=== PATIENT | female | born 2000 | race Caucasian/White ===

== ENCOUNTER → 2021-07-07 13:31 | Outpatient (BNVA) | payer OTHER, SELFPAY | PROVIDERS: Visit Provider Advanced Practice Midwife | DX: O30.002 Twin pregnancy, unspecified number of placenta and unspecified number of amniotic sacs, second trimester (principal); O26.892 Other specified pregnancy related conditions, second trimester; E65 Localized adiposity; Z36.3 Encounter for antenatal screening for malformations; O99.212 Obesity complicating pregnancy, second trimester; E66.01 Morbid (severe) obesity due to excess calories; Z3A.21 21 weeks gestation of pregnancy | CPT/HCPCS: 81025; 99202 ==

== ENCOUNTER → 2021-07-14 13:59 | Outpatient (BNVA) | payer OTHER, SELFPAY | PROVIDERS: Visit Provider Advanced Practice Midwife | DX: Z32.01 Encounter for pregnancy test, result positive (principal) | CPT/HCPCS: 99212 ==

== ENCOUNTER 2021-07-15 10:47 | Outpatient (REF) | payer OTHER, SELFPAY ==
--- NOTE | ~2021-07-15 | US_ITS ---
EXAMINATION: OBSTETRICAL ULTRASOUND, First Trimester Twins HISTORY: A 21-year-old at the 12.0 weeks of gestation Dichorionic diamniotic twins NT screening COMPARISON: None TECHNIQUE: Real time transabdominal imaging with color and M-mode Doppler. FINDINGS: Living dichorionic/diamniotic twin gestation is noted. Twin A: Materal left, posterior placenta A viable fetus with CRL of 53.3 mm c/w 12.0wks is noted. Heart Rate: 160 beats per minute. Normal yolk sac seen. NT was 1.7.mm. NB Present The embryo appears sonographically wnl for this GA. Both maternal ovaries are seen and appear normal. GESTATIONAL AGE: 1. Established GA: 12.0 wks 2. GA from AUA: 12.0 wks Twin B: Maternal right, anterior placenta A viable fetus with CRL of 58.1 mm c/w 12.3wks is noted. Heart Rate: 160 beats per minute. Normal yolk sac seen. NT was 1.1.mm. NB Present The embryo appears sonographically wnl for this GA. GESTATIONAL AGE: 1. Established GA: 12.0 wks 2. GA from AUA: 12.3 wks ESTIMATED DATE OF DELIVERY: 1. Established SKIP: 01/27/2022 2. SKIP from [facility]: 01/25/2020 US/US OB 1T nuc measure add IMPRESSION: Living dichorionic diamniotic, concordant twins Size equals dates Twin A: NT 1.7mm Twin B: NT 1.1 mm MFM Consultation: I reviewed the ultrasound findings along with significance of NT measurement. The NT of less than 3mm is generally reassuring. However, the sensitivity for T21 detection is only 60%. I reviewed the availability of serum aneuploidy screening which includes cell-free DNA and placental protein based tests. I discussed the sensitivity, false-positive rate, and other limitations associated with each test. I also reviewed the availability of invasive diagnostic tests that are associated small but definite risk of miscarriage. We also reviewed the differences between screening tests and diagnostic tests. After our discussion, she opted for the First trimester screening that is based on cell-free DNA or non-invasive testing (NIPT). I informed her of the limitations N IPT in multiple gestations. We discussed various obstetrical complications associated with twin gestation. These include increased risk of delivery, preeclampsia, gestational diabetes, and IUGR. She will be monitored with monthly ultrasound evaluation beginning at 18 weeks until approximately 34 weeks. After that, weekly testing is recommended until delivery. Follow up at 18 weeks for survey has been scheduled. Thank you very much for this referral. Total time 30 minutes. The time spent was devoted to counseling the patient about the disease and diagnosis, coordinating care including reviewing her records, pertinent lab data and studies, as well as discussing diagnostic evaluation and workup, plan therapeutic interventions and future disposition of care. This includes any additional research needed to obtain further information in formulating the plan of care of this patient. This note was generated with a voice recognition program. Please excuse any errors which may have been overlooked during my review of this note. Sometimes these errors may affect the content or meaning of a given sentence.
== END 2021-07-15 10:48 | disposition home or self-care (01) ==
LOC: HO.US 10:47
PROVIDERS: Visit Provider Advanced Practice Midwife
DX: Z36.3 Encounter for antenatal screening for malformations (principal); O30.001 Twin pregnancy, unspecified number of placenta and unspecified number of amniotic sacs, first trimester; Z3A.00 Weeks of gestation of pregnancy not specified
CPT/HCPCS: 76813; 76814

== ENCOUNTER 2021-08-11 09:46 | Outpatient (REF) | payer OTHER, SELFPAY ==
[2021-08-11 16:20] LABS: CT PCR NOT DETECTED (Not Detect.); NG PCR NOT DETECTED (Not Detect.)
[2021-08-12 10:08] LABS: BV Int Neg Control Negative (Negative); BV Int Pos Control Positive (Positive)
== END 2021-08-11 09:47 | disposition home or self-care (01) ==
LOC: HO.LAB 09:46
PROVIDERS: Visit Provider Advanced Practice Midwife
DX: O30.002 Twin pregnancy, unspecified number of placenta and unspecified number of amniotic sacs, second trimester (principal)
CPT/HCPCS: 87480; 87491; 87510; 87591; 87660; 88142

== ENCOUNTER 2021-08-11 11:03 | Outpatient (REF) | payer OTHER, SELFPAY ==
--- NOTE | ~2021-08-11 | US_ITS ---
EXAMINATION: US OB LIMITED. CLINICAL INFORMATION: Twin . COMPARISON: None TECHNIQUE: Routine transabdominal imaging of pelvis is performed. FINDINGS: There are dual live intrauterine fetuses. Fetus B: The fetus is to the maternal right. There is visualization of bladder and stomach. The kidneys and 4 chambers of the heart were not visualized. The heart rate is 146 bpm. From LMP the clinical gestational age is 15 weeks and 6 days. SKIP from previous ultrasound is 01/24/2022 and from LMP 01/27/2022. Fetus A: The fetus is to the maternal left. kidneys and four-chamber heart is not visualized. The bladder and the stomach is normal. The heart rate is 150 bpm. From LMP, the clinical gestational age is 15 weeks 6 days and SKIP is 01/27/2022. From earlier ultrasound, the SKIP is 01/27/2022. There is a membrane the 2 fetuses. US/US OB limited IMPRESSION: Live twin intrauterine fetuses as described above. Results were called to Guillermina the RN nurse at 11:27 AM by the product/device technologist.
== END 2021-08-11 11:04 | disposition home or self-care (01) ==
LOC: HO.US 11:03
PROVIDERS: Visit Provider Advanced Practice Midwife
DX: O35.9XX0 Maternal care for (suspected) fetal abnormality and damage, unspecified, not applicable or unspecified (principal); O26.892 Other specified pregnancy related conditions, second trimester; F41.9 Anxiety disorder, unspecified; F32.A Depression, unspecified; Z3A.15 15 weeks gestation of pregnancy
CPT/HCPCS: 76815; 99212

== ENCOUNTER 2021-08-26 10:01 | Outpatient (REF) | payer OTHER, SELFPAY ==
--- NOTE | ~2021-08-26 | US_ITS ---
EXAMINATION: OBSTETRICAL ULTRASOUND - SECOND TRIMESTER, TWINS HISTORY: 21-year-old at the 18.0 weeks of gestation Dichorionic diamniotic twins Screening for anomaly/cervical length screening COMPARISON: 6 08/11/2021 TECHNIQUE: Real time transabdominal imaging with color and M-mode Doppler. Transvaginal ultrasound was performed for accurate cervical length measurement. TWIN A: PRESENTATION: Maternal left, VTX PLACENTA LOCATION: Posterior without previa AMNIOTIC FLUID: Within normal limits MEASUREMENTS: 1. Biparietal Diameter: 4.1 cm; 18.4 wks 2. Occipital Frontal Diameter: 5.1 cm 3. Head Circumference: 14.9 cm; 18.0 wks 4. Abdominal Circumference: 12.8 cm; 18.3 wks 5. Femur Length: 2.7 cm; 18.3 wks 6. Humerus Length: 2.6 cm; 18.1 wks 7. Tibia Length: 2.2 cm; 18.0 wks 8. Ulna Length: 2.4 cm; 18.4 wks 9. Lateral ventricle: 0.7 cm 10. Cerebellum: 1.8 cm; 18.5 wks 11. Cisterna Magna: 0.4 cm 12. Nuchal Fold: 3.1 mm 13. Heart Rate: 163 beats per minute GESTATIONAL AGE: Established GA: 18.0 wks GA from AUA: 18.3 wks ANATOMY: 1. Cranium: Normal 2. BPD Level: Normal 3. Cerebral ventricles: Normal 4. face: Normal 5. Cardiac anatomy: Normal 6. Heart chambers: Normal 7. Diaphragm: Normal 8. Abdominal wall: Normal 9. Spine: Normal 10. Stomach: Normal 11. 3 vessel cord: Normal 12. Upper extremity: Normal 13. Lower extremity: Normal 14. Right Kidney: Normal 15. Left Kidney: Normal 16. Bladder: Normal 17. Genitalia: Male TWIN B: PRESENTATION: Transverse, maternal right PLACENTA LOCATION: Anterior without previa AMNIOTIC FLUID: Normal MEASUREMENTS: 1. Biparietal Diameter: 4.3 cm; 19.1 wks 2. Occipital Frontal Diameter: 5.4 cm 3. Head Circumference: 15.3 cm; 18.2 wks 4. Abdominal Circumference: 12.6 cm; 18.2 wks 5. Femur Length: 2.6 cm; 18.0 wks 6. Humerus Length: 2.6 cm; 18.1 wks 7. Tibia Length: 2.1 cm; 17.3 wks 8. Ulna Length: 2.3 cm; 18.2 wks 9. Lateral ventricle: 0.85 cm 10. Cerebellum: 1.78 cm; 18.4 wks 11. Cisterna Magna: 0.55 cm 12. Nuchal Fold: 3.8 mm 13. Heart Rate: 134 beats per minute GESTATIONAL AGE: Established GA: 18.0 wks GA from [facility]: 18.3 wks ANATOMY: 1. Cranium: Normal 2. BPD Level: Normal 3. Cerebral ventricles: Normal 4. face: Normal 5. Cardiac anatomy: Normal 6. Heart chambers: Normal 7. Diaphragm: Normal 8. Abdominal wall: Normal 9. Spine: Normal 10. Stomach: Normal 11. 3 vessel cord: Normal 12. Upper extremity: Normal 13. Lower extremity: Normal 14. Right Kidney: Normal 15. Left Kidney: Normal 16. Bladder: Normal 17. Genitalia: Male ESTIMATED DATE OF DELIVERY: 1. Established SKIP: 01/27/2022 2. SKIP from [facility]: 01/24/2022 US/US OB transvaginal IMPRESSION: 1. Concordant, dichorionic diamniotic twins 2. Both twins are appropriate size for the given gestational age. 3. Normal survey in both twins 4. Cervix: 4.8 cm (T/V) We reviewed today's ultrasound findings. Have informed the patient that there were no ultrasound stigmata for aneuploidy. We reviewed that the limitations of ultrasound in detecting aneuploidy and other defects. Her cervical length is within normal limits. We also discussed the various obstetrical complications associated with dichorionic diamniotic twins. These include increased risk of delivery, preeclampsia, gestational diabetes and IUGR. The average gestational age for delivery for twins is approximately 38 weeks. A follow-up in one month has been scheduled. Thank you very much for this referral. Total time 45 minutes. The time spent was devoted to counseling the patient about the disease and diagnosis, coordinating care including reviewing her records, pertinent lab data and studies, as well as discussing diagnostic evaluation and workup, plan therapeutic interventions and future disposition of care. This includes any additional research needed to obtain further information in formulating the plan of care of this patient. This note was generated with a voice recognition program. Please excuse any errors which may have been overlooked during my review of this note. Sometimes these errors may affect the content or meaning of a given sentence.
--- NOTE | ~2021-08-26 | US_ITS ---
EXAMINATION: OBSTETRICAL ULTRASOUND - SECOND TRIMESTER, TWINS HISTORY: 21-year-old at the 18.0 weeks of gestation Dichorionic diamniotic twins Screening for anomaly/cervical length screening COMPARISON: 6 08/11/2021 TECHNIQUE: Real time transabdominal imaging with color and M-mode Doppler. Transvaginal ultrasound was performed for accurate cervical length measurement. TWIN A: PRESENTATION: Maternal left, VTX PLACENTA LOCATION: Posterior without previa AMNIOTIC FLUID: Within normal limits MEASUREMENTS: 1. Biparietal Diameter: 4.1 cm; 18.4 wks 2. Occipital Frontal Diameter: 5.1 cm 3. Head Circumference: 14.9 cm; 18.0 wks 4. Abdominal Circumference: 12.8 cm; 18.3 wks 5. Femur Length: 2.7 cm; 18.3 wks 6. Humerus Length: 2.6 cm; 18.1 wks 7. Tibia Length: 2.2 cm; 18.0 wks 8. Ulna Length: 2.4 cm; 18.4 wks 9. Lateral ventricle: 0.7 cm 10. Cerebellum: 1.8 cm; 18.5 wks 11. Cisterna Magna: 0.4 cm 12. Nuchal Fold: 3.1 mm 13. Heart Rate: 163 beats per minute GESTATIONAL AGE: Established GA: 18.0 wks GA from [facility]: 18.3 wks ANATOMY: 1. Cranium: Normal 2. BPD Level: Normal 3. Cerebral ventricles: Normal 4. face: Normal 5. Cardiac anatomy: Normal 6. Heart chambers: Normal 7. Diaphragm: Normal 8. Abdominal wall: Normal 9. Spine: Normal 10. Stomach: Normal 11. 3 vessel cord: Normal 12. Upper extremity: Normal 13. Lower extremity: Normal 14. Right Kidney: Normal 15. Left Kidney: Normal 16. Bladder: Normal 17. Genitalia: Male TWIN B: PRESENTATION: Transverse, maternal right PLACENTA LOCATION: Anterior without previa AMNIOTIC FLUID: Normal MEASUREMENTS: 1. Biparietal Diameter: 4.3 cm; 19.1 wks 2. Occipital Frontal Diameter: 5.4 cm 3. Head Circumference: 15.3 cm; 18.2 wks 4. Abdominal Circumference: 12.6 cm; 18.2 wks 5. Femur Length: 2.6 cm; 18.0 wks 6. Humerus Length: 2.6 cm; 18.1 wks 7. Tibia Length: 2.1 cm; 17.3 wks 8. Ulna Length: 2.3 cm; 18.2 wks 9. Lateral ventricle: 0.85 cm 10. Cerebellum: 1.78 cm; 18.4 wks 11. Cisterna Magna: 0.55 cm 12. Nuchal Fold: 3.8 mm 13. Heart Rate: 134 beats per minute GESTATIONAL AGE: Established GA: 18.0 wks GA from [facility]: 18.3 wks ANATOMY: 1. Cranium: Normal 2. BPD Level: Normal 3. Cerebral ventricles: Normal 4. face: Normal 5. Cardiac anatomy: Normal 6. Heart chambers: Normal 7. Diaphragm: Normal 8. Abdominal wall: Normal 9. Spine: Normal 10. Stomach: Normal 11. 3 vessel cord: Normal 12. Upper extremity: Normal 13. Lower extremity: Normal 14. Right Kidney: Normal 15. Left Kidney: Normal 16. Bladder: Normal 17. Genitalia: Male ESTIMATED DATE OF DELIVERY: 1. Established SKIP: 01/27/2022 2. SKIP from [facility]: 01/24/2022 US/US OB /maternal det add IMPRESSION: 1. Concordant, dichorionic diamniotic twins 2. Both twins are appropriate size for the given gestational age. 3. Normal survey in both twins 4. Cervix: 4.8 cm (T/V) We reviewed today's ultrasound findings. Have informed the patient that there were no ultrasound stigmata for aneuploidy. We reviewed that the limitations of ultrasound in detecting aneuploidy and other defects. Her cervical length is within normal limits. We also discussed the various obstetrical complications associated with dichorionic diamniotic twins. These include increased risk of delivery, preeclampsia, gestational diabetes and IUGR. The average gestational age for delivery for twins is approximately 38 weeks. A follow-up in one month has been scheduled. Thank you very much for this referral. Total time 45 minutes. The time spent was devoted to counseling the patient about the disease and diagnosis, coordinating care including reviewing her records, pertinent lab data and studies, as well as discussing diagnostic evaluation and workup, plan therapeutic interventions and future disposition of care. This includes any additional research needed to obtain further information in formulating the plan of care of this patient. This note was generated with a voice recognition program. Please excuse any errors which may have been overlooked during my review of this note. Sometimes these errors may affect the content or meaning of a given sentence.
--- NOTE | ~2021-08-26 | US_ITS ---
EXAMINATION: OBSTETRICAL ULTRASOUND - SECOND TRIMESTER, TWINS HISTORY: 21-year-old at the 18.0 weeks of gestation Dichorionic diamniotic twins Screening for anomaly/cervical length screening COMPARISON: 6 08/11/2021 TECHNIQUE: Real time transabdominal imaging with color and M-mode Doppler. Transvaginal ultrasound was performed for accurate cervical length measurement. TWIN A: PRESENTATION: Maternal left, VTX PLACENTA LOCATION: Posterior without previa AMNIOTIC FLUID: Within normal limits MEASUREMENTS: 1. Biparietal Diameter: 4.1 cm; 18.4 wks 2. Occipital Frontal Diameter: 5.1 cm 3. Head Circumference: 14.9 cm; 18.0 wks 4. Abdominal Circumference: 12.8 cm; 18.3 wks 5. Femur Length: 2.7 cm; 18.3 wks 6. Humerus Length: 2.6 cm; 18.1 wks 7. Tibia Length: 2.2 cm; 18.0 wks 8. Ulna Length: 2.4 cm; 18.4 wks 9. Lateral ventricle: 0.7 cm 10. Cerebellum: 1.8 cm; 18.5 wks 11. Cisterna Magna: 0.4 cm 12. Nuchal Fold: 3.1 mm 13. Heart Rate: 163 beats per minute GESTATIONAL AGE: Established GA: 18.0 wks GA from [facility]: 18.3 wks ANATOMY: 1. Cranium: Normal 2. BPD Level: Normal 3. Cerebral ventricles: Normal 4. face: Normal 5. Cardiac anatomy: Normal 6. Heart chambers: Normal 7. Diaphragm: Normal 8. Abdominal wall: Normal 9. Spine: Normal 10. Stomach: Normal 11. 3 vessel cord: Normal 12. Upper extremity: Normal 13. Lower extremity: Normal 14. Right Kidney: Normal 15. Left Kidney: Normal 16. Bladder: Normal 17. Genitalia: Male TWIN B: PRESENTATION: Transverse, maternal right PLACENTA LOCATION: Anterior without previa AMNIOTIC FLUID: Normal MEASUREMENTS: 1. Biparietal Diameter: 4.3 cm; 19.1 wks 2. Occipital Frontal Diameter: 5.4 cm 3. Head Circumference: 15.3 cm; 18.2 wks 4. Abdominal Circumference: 12.6 cm; 18.2 wks 5. Femur Length: 2.6 cm; 18.0 wks 6. Humerus Length: 2.6 cm; 18.1 wks 7. Tibia Length: 2.1 cm; 17.3 wks 8. Ulna Length: 2.3 cm; 18.2 wks 9. Lateral ventricle: 0.85 cm 10. Cerebellum: 1.78 cm; 18.4 wks 11. Cisterna Magna: 0.55 cm 12. Nuchal Fold: 3.8 mm 13. Heart Rate: 134 beats per minute GESTATIONAL AGE: Established GA: 18.0 wks GA from [facility]: 18.3 wks ANATOMY: 1. Cranium: Normal 2. BPD Level: Normal 3. Cerebral ventricles: Normal 4. face: Normal 5. Cardiac anatomy: Normal 6. Heart chambers: Normal 7. Diaphragm: Normal 8. Abdominal wall: Normal 9. Spine: Normal 10. Stomach: Normal 11. 3 vessel cord: Normal 12. Upper extremity: Normal 13. Lower extremity: Normal 14. Right Kidney: Normal 15. Left Kidney: Normal 16. Bladder: Normal 17. Genitalia: Male ESTIMATED DATE OF DELIVERY: 1. Established SKIP: 01/27/2022 2. SKIP from [facility]: 01/24/2022 US/US OB /maternal detail IMPRESSION: 1. Concordant, dichorionic diamniotic twins 2. Both twins are appropriate size for the given gestational age. 3. Normal survey in both twins 4. Cervix: 4.8 cm (T/V) We reviewed today's ultrasound findings. Have informed the patient that there were no ultrasound stigmata for aneuploidy. We reviewed that the limitations of ultrasound in detecting aneuploidy and other defects. Her cervical length is within normal limits. We also discussed the various obstetrical complications associated with dichorionic diamniotic twins. These include increased risk of delivery, preeclampsia, gestational diabetes and IUGR. The average gestational age for delivery for twins is approximately 38 weeks. A follow-up in one month has been scheduled. Thank you very much for this referral. Total time 45 minutes. The time spent was devoted to counseling the patient about the disease and diagnosis, coordinating care including reviewing her records, pertinent lab data and studies, as well as discussing diagnostic evaluation and workup, plan therapeutic interventions and future disposition of care. This includes any additional research needed to obtain further information in formulating the plan of care of this patient. This note was generated with a voice recognition program. Please excuse any errors which may have been overlooked during my review of this note. Sometimes these errors may affect the content or meaning of a given sentence.
== END 2021-08-26 10:02 | disposition home or self-care (01) ==
LOC: HO.US 10:01
PROVIDERS: Visit Provider Advanced Practice Midwife
DX: Z36.3 Encounter for antenatal screening for malformations (principal); O35.9XX0 Maternal care for (suspected) fetal abnormality and damage, unspecified, not applicable or unspecified; O30.001 Twin pregnancy, unspecified number of placenta and unspecified number of amniotic sacs, first trimester; O99.211 Obesity complicating pregnancy, first trimester; E66.01 Morbid (severe) obesity due to excess calories
CPT/HCPCS: 76811; 76812; 76817

== ENCOUNTER → 2021-09-08 10:22 | Outpatient (BNVA) | payer OTHER, SELFPAY | PROVIDERS: Visit Provider Obstetrics & Gynecology | DX: O30.002 Twin pregnancy, unspecified number of placenta and unspecified number of amniotic sacs, second trimester (principal); Z3A.19 19 weeks gestation of pregnancy | CPT/HCPCS: 81003; 99212 ==

== ENCOUNTER 2021-09-08 11:10 | Outpatient (REF) | payer OTHER, SELFPAY ==
[2021-09-08 12:38] LABS: HBsAGNum1 0.21 S/CO (0.00-0.99); HIV AB/AG Nonreactive (Nonreactive); HIV Num 1 0.08 S/CO (0.00-0.99); Hepatitis B Surface Antigen Negative (Negative); ~HepC Num1 0.07 S/CO (0.00-0.79); ~Hepatitis C Antibody Nonreactive (Nonreactive)
[2021-09-08 13:39] LABS: Hematocrit 32.5 % (37.0-47.0); Hemoglobin 10.7 g/dl (12.0-16.0); Mean Corpuscular HGB Conc 32.9 g/dl (31.0-35.0); Mean Corpuscular Hemoglobin 30.4 pg (27.0-33.0); Mean Corpuscular Volume 92.3 fL (80.0-98.0); Mean Platelet Volume 9.6 fL (9.4-12.3); Platelet Count 252 X10*3/uL (160-400); Red Blood Count 3.52 X10*6/uL (4.20-5.50); Red Cell Distribution Width 13.4 % (11.0-16.0); White Blood Count 8.8 X10*3/uL (4.8-10.8)
[2021-09-08 13:57] LABS: Glucose 1 Hour PP 50gm Dose 106 mg/dL (60-140)
[2021-09-08 14:35] LABS: Amphetamine Screen Urine Not Detected (Not Detect); Barbiturates, Urine Not Detected (Not Detect); Benzodiazepines Screen Urine Not Detected (Not Detect); Cannabinoid Screen Urine POSITIVE (Not Detect); Cocaine Screen Urine Not Detected (Not Detect); Fentanyl, urine Not Detected (Not Detect); Opiate Screen Urine Not Detected (Not Detect); Phencyclidine Screen Urine Not Detected (Not Detect)
[2021-09-09 05:47] LABS: Rubella IgG Antibody <0.90 Index; Varicella IgG Antibody <135.00 index
[2021-09-09 08:46] LABS: Syphilis Screen Nonreactive (Nonreactive)
== END 2021-09-08 11:11 | disposition home or self-care (01) ==
LOC: HO.LAB 11:10
PROVIDERS: Advanced Practice Midwife; Visit Provider Obstetrics & Gynecology
DX: Z32.01 Encounter for pregnancy test, result positive (principal)
CPT/HCPCS: 80307; 85027; 86762; 86780; 86787; 86803; 86850; 86900; 86901; 87086; 87340; 87389